=== PATIENT | female | born 1960 | race Caucasian/White ===

== ENCOUNTER 2021-05-22 03:33 | Outpatient (CLI) | payer BC, SELFPAY ==
[2021-05-22 16:22] LABS: Abs Immature Grans 0.02 10^3/uL (0.0-0.06); Absolute Basophil Count 0.09 10^3/uL (0.0-0.2); Absolute Lymphocyte Count 2.99 10^3/uL (1.2-3.4); Absolute Monocyte Count 0.65 10^3/uL (0.1-0.8); Absolute Neutrophil Count 3.36 10^3/uL (1.2-6.7); Basophils % 1.2; HCT 45.3 % (36.0-46.0); HGB 14.9 g/dL (11.2-15.7); Immature Grans % 0.3; Lymphocytes % 40.4; MCH 31.9 pg (27.0-33.0); MCHC 32.9 % (32.0-36.0); MPV 9.1 fL (8.0-11.0); Monocytes % 8.8; Neutrophils % 45.3; Nucleated RBC 0 %; Platelet Count 224 10^3/uL (130-400); RBC 4.67 10^6/uL (3.93-5.22); RDW 13.8 % (11.7-14.6); RDW-SD 49.1 fL; WBC 7.41 10^3/uL (4.4-10.8)
[2021-05-22 17:32] LABS: ALT 25 U/L (14-59); AST 9 U/L (15-37); Albumin 3.8 g/dL (3.4-5.0); Alkaline Phosphatase 69 U/L (46-116); Anion Gap 6.4 mmol/L (3-11); BUN 14 mg/dL (7-18); Bilirubin, Total 0.3 mg/dL (0.2-1.0); CO2 29.6 mmol/L (21.0-32.0); CREATININE 0.7 mg/dL (0.55-1.02); Calcium 8.6 mg/dL (8.5-10.1); Chloride 106 mmol/L (98-107); Glucose 95 mg/dL (74-106); Potassium 4.1 mmol/L (3.5-5.1); Sodium 142 mmol/L (136-145); Total Protein 7.1 g/dL (6.4-8.2)
[2021-05-25 10:27] LABS: IgA 184 mg/dL (85-499); IgG 1276 mg/dL (610-1,616); IgM 35 mg/dL (35-242); Kappa Free Light Chain 3.26 mg/dL (0.33-1.94); Lambda Free Light Chain 1.66 mg/dL (0.57-2.63)
[2021-05-25 12:05] LABS: Comment (See Note); Monoclonal Spike 5.2 % (None Seen); Total Protein 7.1 g/dL (6.3-8.2)
== END 2021-05-22 03:34 | disposition home or self-care (01) ==
LOC: LBO 03:33
PROVIDERS: Visit Provider Internal Medicine Hematology & Oncology
DX: D47.2 Monoclonal gammopathy (principal)
CPT/HCPCS: 36415; 80053; 82784; 83883; 84165; 85025

== ENCOUNTER 2022-06-24 03:47 | Outpatient (CLI) | payer BC, SELFPAY ==
[2022-06-24 08:56] LABS: Abs Immature Grans 0.01 10^3/uL (0.0-0.06); Absolute Basophil Count 0.07 10^3/uL (0.0-0.2); Absolute Eosinophil Count 0.21 10^3/uL (0.0-0.7); Absolute Lymphocyte Count 2.22 10^3/uL (1.2-3.4); Absolute Monocyte Count 0.54 10^3/uL (0.1-0.8); Absolute Neutrophil Count 3.48 10^3/uL (1.2-6.7); Basophils % 1.1; Eosinophils % 3.2; HCT 46.9 % (36.0-46.0); HGB 15.6 g/dL (11.2-15.7); Immature Grans % 0.2; MCH 32.6 pg (27.0-33.0); MCHC 33.3 % (32.0-36.0); MCV 98 fL (80-95); MPV 9.1 fL (8.0-11.0); Monocytes % 8.3; Neutrophils % 53.2; Platelet Count 262 10^3/uL (130-400); RBC 4.79 10^6/uL (3.93-5.22); RDW 12.7 % (11.7-14.6); WBC 6.53 10^3/uL (4.4-10.8)
[2022-06-24 09:09] LABS: ALT 41 U/L (14-59); AST 19 U/L (15-37); Albumin 3.9 g/dL (3.4-5.0); Alkaline Phosphatase 76 U/L (46-116); Anion Gap 7.4 mmol/L (3-11); BUN 12 mg/dL (7-18); Bilirubin, Total 0.3 mg/dL (0.2-1.0); CO2 29.6 mmol/L (21.0-32.0); CREATININE 0.8 mg/dL (0.55-1.02); Calcium 8.9 mg/dL (8.5-10.1); Chloride 102 mmol/L (98-107); Estimated GFR 82.74 (mL/min/1.73m2); Glucose 104 mg/dL (74-106); Sodium 139 mmol/L (136-145); Total Protein 7.8 g/dL (6.4-8.2)
[2022-06-25 10:09] LABS: IgA 180 mg/dL (85-499); IgG 1345 mg/dL (610-1616); IgM 38 mg/dL (35-242); Kappa Free Light Chain 4.08 mg/dL (0.33-1.94); Lambda Free Light Chain 1.86 mg/dL (0.57-2.63)
[2022-06-25 14:02] LABS: Albumin 60.2 % (55.8-66.1); Albumin g/dL 4.5 g/dL (3.6-5.2); Comment (See Note); Monoclonal Spike g/dL 0.4 g/dL (None Seen); Total Protein 7.4 g/dL (6.3-8.2)
== END 2022-06-24 03:48 | disposition home or self-care (01) ==
LOC: LBO 03:48
PROVIDERS: Visit Provider Internal Medicine Hematology & Oncology
DX: D47.2 Monoclonal gammopathy (principal)
CPT/HCPCS: 36415; 80053; 82784; 83883; 84165; 85025